=== PATIENT | female | born 1980 ===

== ENCOUNTER 2018-07-31 10:14 | Inpatient (IN) | payer OTHER ==
[~2018-07-31] VITALS: Ht 162.6 cm; Wt 87.5 kg
[2018-07-31] MEDS ORDERED: PRENATAL TABLE1 EAC2 PO (10:36)
== END 2018-08-02 13:56 | disposition home or self-care, planned readmission (81) | DRG 775 ==
LOC: OB/GYN 10:14 → LDR 10:14 → OB/GYN 13:32
PROC: 10E0XZZ Delivery of Products of Conception, External Approach (ICD-10-PCS; principal; 2018-07-31)
PROC: 4A1HXCZ Monitoring of Products of Conception, Cardiac Rate, External Approach (ICD-10-PCS; 2018-07-31)
DX: O80 Encounter for full-term uncomplicated delivery (principal); Z3A.38 38 weeks gestation of pregnancy; Z37.0 Single live birth